=== PATIENT | male | born 1995 | race Caucasian/White ===

== ENCOUNTER 2024-12-10 05:11 | Inpatient (IN) | payer SELFPAY ==
[2024-12-10] MEDS ORDERED: Morphine 2 MG/ML VIAL SLOW IVP PRN ×2 (05:23→09:49)
[2024-12-10] MEDS ORDERED: Ondansetron PF 4 MG/2 ML Vial IVP PRN (05:23)
[2024-12-10] MEDS ORDERED: hydrALAZINE 20 MG/ML VIAL SLOW IVP PRN (05:23)
[2024-12-10 05:27] VITALS: BMI 22.6
[2024-12-10] MEDS: Piperacillin/Tazobactam 3.375 GM in Sodium Chloride 0.9% 100 ML IVPB SCH ×2 (05:42→09:43)
[2024-12-10] MEDS: HYDROcodone/Acetaminophen 5/325 mg Tablet PO PRN (08:19)
[2024-12-10] MEDS ORDERED: PROPOFOL 20 ML ONE (09:47)
[2024-12-10] MEDS ORDERED: Dexamethasone 4 mg/ml Vial ONE (09:47)
[2024-12-10] MEDS ORDERED: fentaNYL PF 100 MCG/2 ML SYRINGE ONE ×2 (09:47→10:57)
[2024-12-10] MEDS ORDERED: SUGAMMADEX SODIUM 200 MG/2 ML VIAL ONE (09:47)
[2024-12-10] MEDS ORDERED: Rocuronium Bromide 10 MG/ML (10ML VIAL) ONE (09:47)
[2024-12-10] MEDS ORDERED: Ondansetron PF 4 MG/2 ML Vial ONE (09:47)
[2024-12-10] MEDS ORDERED: Midazolam HCl 2 mg/2 ml Vial ONE (09:47)
[2024-12-10] MEDS ORDERED: Lidocaine 1% PF 5 ML VIAL ONE (10:29)
[2024-12-10] MEDS ORDERED: Ketorolac Tromethamine 30 MG (1 mL) VIAL ONE (11:54)
[2024-12-10] MEDS ORDERED: fentaNYL 50 mcg/mL 1 mL Vial ONE (11:54)
[2024-12-10] MEDS: Ketorolac Tromethamine 30 MG (1 mL) VIAL IVP SCH (11:57)
[2024-12-10] MEDS: traMADol HCl 50 MG TAB PO SCH (13:23)
[2024-12-11 05:17] LABS: #Basophils 0.03 10x3/uL (0.0-0.2); %Basophils 0.2 % (0.0-1.0); %Eosinophils 0.6 % (0.0-10.0); %Monocytes 10.2 % (0.0-10.0); %Neutrophils 71.7 % (42.0-75.0); Hematocrit 35.8 % (42.0-52.0); Mean Corpuscular HGB CONC 33.5 g/dL (32.0-36.0); Mean Corpuscular Hemoglobin 29.6 pg (27.0-31.0); Mean Corpuscular Volume 88.2 fL (78.0-98.0); Mean Platelet Volume 9.1 fL (7.4-10.4); Platelet Count 275 10x3/uL (130-400); RBC Distribution Width 12.7 % (11.5-14.5); Red Blood Cell (RBC) Count 4.06 mill/uL (4.70-6.10)
[2024-12-11 05:36] LABS: Anion Gap 17 mmol/L (10-20); BUN (Urea Nitrogen) 17 mg/dL (8.9-20.6); Calc. Creatinine Clearance 129 mL/min (70-130); Calcium 8.9 mg/dL (7.8-10.44); Carbon Dioxide 22 mmol/L (22-29); Chloride 106 mmol/L (98-107); Estimated GFR 113; Glucose 99 mg/dL (70-105); Potassium 3.6 mmol/L (3.5-5.1); Sodium 141 mmol/L (136-145)
[2024-12-11] MEDS: traMADol HCl 50 MG TAB PO PRN (11:51)
[2024-12-11 12:52] VITALS: BP 115/69; TEMP 97.2
== END 2024-12-11 13:52 | disposition home or self-care (01) | DRG 603 ==
LOC: EDBD 05:21 → SURG B 05:21
PROVIDERS: ADMIT Surgery; ATTEND Surgery
PROC: 0H98XZZ Drainage of Buttock Skin, External Approach (ICD-10-PCS; principal; 2024-12-10)
DX: L05.01 Pilonidal cyst with abscess (principal); K61.1 Rectal abscess; L03.317 Cellulitis of buttock
CPT/HCPCS: 36415; 80048; 85025; J1100; J1885; J2250; J2405; J2543; J2704; J3010